=== PATIENT | male | born 1935 | race Caucasian/White ===

== ENCOUNTER 2021-10-19 14:52 | Emergency (ER) | payer MEDICARE, SELFPAY ==
--- NOTE | ~2021-10-19 | XR_ITS ---
EXAMINATION: XR CHEST CLINICAL INFORMATION: Shortness of breath, rule out pneumonia. COMPARISON: None TECHNIQUE: Frontal view of the chest was obtained. FINDINGS: Kyphotic positioning and low lung volumes limit evaluation. The patient's chin partially obscures the left apex. Minimal blunting of the left costophrenic angle seen with mild superjacent linear markings. The left upper lung field and right lung are clear. Multilevel healed right rib fractures are noted. The heart and mediastinal structures are unremarkable. XR/XR chest 1V IMPRESSION: Minimal blunting of the left costophrenic angle is nonspecific and could be projectional given the suboptimal positioning. A very small left pleural effusion and superjacent atelectasis cannot be excluded. PA and lateral views of the chest be helpful in this patient with possible.
[2021-10-19 15:26] VITALS: BP 122/50; PULSE 62; RESP 18; TEMP 36.9; O2SAT 98; O2SAT 99; BMI 31.0
--- NOTE | 2021-10-19 16:11 | ED_ITS ---
HPI - General Adult General Chief complaint: General Medical Stated complaint: weakness Time Seen by Provider: 10/19/21 15:58 Source: EMS Mode of arrival: EMS Limitations: other (Dementia) History of Present Illness HPI narrative: Patient comes emergency room via EMS. Patient was discharged from [facility] an hour ago. Patient was therefore UTI encephalopathy. Patient was discharged on antibiotics, nitrofurantoin. Patient was taken to [facility], the staff said that the patient was unresponsive and called EMS. When EMS arrived, patient was alert, arousable, patient denied any complaints. Related Data Home Medications Medication Instructions Recorded Confirmed amlodipine 10 mg tablet 1 tab PO DAILY 10/19/21 10/19/21 aspirin 81 mg tablet,delayed 81 mg PO DAILY 10/19/21 10/19/21 release atorvastatin 80 mg tablet 80 mg PO BEDTIME 10/19/21 10/19/21 duloxetine 30 mg capsule,delayed 1 cap PO BID 10/19/21 10/19/21 release empagliflozin 10 mg tablet 10 mg PO DAILY 10/19/21 10/19/21 (Jardiance) glipizide 10 mg tablet 10 mg PO BID 10/19/21 10/19/21 isosorbide mononitrate 30 mg 30 mg PO DAILY 10/19/21 10/19/21 tablet,extended release 24 hr isosorbide mononitrate 60 mg 60 mg PO DAILY 10/19/21 10/19/21 tablet,extended release 24 hr memantine 10 mg tablet 1 tab PO BID 10/19/21 10/19/21 metoprolol succinate 25 mg 12.5 mg PO DAILY@1800 10/19/21 10/19/21 tablet,extended release 24 hr mirtazapine 15 mg tablet 15 mg PO BEDTIME 10/19/21 10/19/21 nitrofurantoin macrocrystal 100 mg 1 cap PO BID 10/19/21 10/19/21 capsule risperidone 0.25 mg tablet 0.25 mg PO DAILY@1800 10/19/21 10/19/21 Allergies Allergy/AdvReac Type Severity Reaction Status Date / Time Unable to Assess Allergy Verified 10/19/21 16:16 Review of Systems Review of Systems: Constitutional : No fever ENT/Mouth : No Hearing loss, No Ear Pain, No Nasal Congestion, No Sinus Pain, No Hoarseness, No sore throat, No Rhinorrhea, No Swallowing Difficulty Eyes: No Eye Pain, No Swelling, No Redness, No Foreign Body, No Discharge, No Vision Changes Cardiovascular : No Chest Pain, No SOB, No Dyspnea on Exertion, No Orthopnea, No Edema, No Palpitations Respiratory : No Cough, No Sputum, No Wheezing, No Smoke Exposure, No Dyspnea Gastrointestinal : No Nausea, No Vomiting, No Diarrhea, No Constipation, No abdominal Pain, No Hematochezia, No Melena Genitourinary : no irregular bleeding, No Dysuria, No Urinary Frequency, No Hematuria, No Urinary Incontinence, No Urgency, No Flank Pain, No Urinary Flow Changes, No Hesitancy Musculoskeletal : No joint pain, No Myalgias, No Joint Swelling Skin : No Skin Lesions, No rash Neuro : No Weakness, No Numbness, No Paresthesias, No Loss of Consciousness, No Dizziness, No Headache Psych : No Anxiety/Panic, No Depression, No SI/HI/AH/VH, No Social Issues, Heme/Lymph: No Bruising, No Bleeding,No Lymphadenopathy Endocrine : No Polyuria, No Polydipsia, No Temperature Intolerance [facility] Past Medical History Medical History (Updated 10/19/21 @ 20:26 by Gayle Garcia MD) Coronary artery disease Dementia Diabetes Social History Social History Advance Directives: No Advance Directives Information Provided: No Physical Exam ED Vital Signs: Vital Signs - 24 hr 10/19/21 15:26 10/19/21 18:17 10/19/21 20:06 Temperature 98.4 F 96.4 F L Pulse Rate 62 57 61 Respiratory Rate 18 9 L 14 Blood Pressure 122/50 L 121/61 125/55 L Pulse Oximetry 99 97 98 BMI result Body Mass Index 31.0 Const Other: Appearance: Alert. Oriented X1. No acute distress. Easily arousable, states he feels well Eyes: Pupils equal, round and reactive to light. ENT: Pharynx normal. Neck: Normal inspection. Neck supple. No lymph nodes noted. No crepitus CVS: Normal heart rate and rhythm. Pulses normal. Normal S1 and S2 Respiratory: No respiratory distress. Breath sounds normal. No Wheezing. No rales Abdomen: Soft and nontender. No rigidity. No distention. Skin: Skin warm and dry. Normal skin color. Normal skin turgor. Extremities: No lower extremity edema. No Lacerations. No Rash Neuro: No slurred speech. CN 2 through 12 grossly intact Psych: calm, cooperative, normal affect Course Course Course Narrative: Patient was discharged from [facility] about an hour ago. Patient is already on antibiotics. The reason he was brought to the emergency room here at [facility] is because he was found unresponsive, EMS found the patient to be alert. Here in the emergency room patient is alert as well, conversing with the staff. At this time, there is no need for further tests. Case management consult has been placed. Physician observation started at 16:15 Given the patient's age, renal function, we will switch his antibiotic from Macrobid to cefuroxime. First dose given in the emergency room 10/19/2021 Discharge Plan Discharge Clinical Impression: AMS (altered mental status) Patient Disposition: Still a Patient Prescriptions: No Action atorvastatin 80 mg tablet 80 mg PO BEDTIME 0RF glipizide 10 mg tablet 10 mg PO BID 0RF isosorbide mononitrate 30 mg tablet extended release 24 hr 30 mg PO DAILY 0RF risperidone 0.25 mg tablet 0.25 mg PO DAILY@1800 0RF aspirin 81 mg Tablet,Delayed Release (Dr/Ec) 81 mg PO DAILY 0RF isosorbide mononitrate 60 mg tablet extended release 24 hr 60 mg PO DAILY 0RF Rx Instructions: take with isosorbide 30 mg amlodipine 10 mg tablet 1 tab PO DAILY 0RF nitrofurantoin macrocrystal 100 mg capsule 1 cap PO BID 0RF mirtazapine 15 mg tablet 15 mg PO BEDTIME 0RF metoprolol succinate 25 mg tablet extended release 24 hr 12.5 mg PO DAILY@1800 0RF memantine 10 mg tablet 1 tab PO BID 0RF duloxetine 30 mg capsule,delayed release(DR/EC) 1 cap PO BID 0RF Jardiance 10 mg tablet 10 mg PO DAILY 0RF
--- NOTE | 2021-10-19 16:12 | MHC.CM.ED ---
Patient came to ER from [facility]. Patient was d/c'd from [facility] to [facility] on 10/19. Facility felt patient was lethargic and sent him to the ER. Patient currently not lethargic. Anticipate patient will return to facility. Referral made via [employer]. Continue to monitor for d/c needs.
--- NOTE | 2021-10-19 17:21 | MHC.CM.ED ---
Addendum entered by Rosamaria Lewis 10/19/21 18:23: CLARIFICATION: Pt was at [facility] for 3 days FROM HOME prior to admission to [facility] for 1 day, and then return to [facility] ED overnight with placement at [facility] [place] for STR today. Pt arrived at [facility], was not arousable and EMS brought pt to [facility] ED. HCP[facility]POA [facility] Addendum entered by Rosamaria Lewis 10/19/21 17:56: Current med list uploaded into [facility] and on pt chart. Also uploaded MOLST into [facility] and [facility]. Dr. Garcia aware of med list/MOLST. Pharmacy aware. Per Meghana, , pt eats a regular diet. MD and Nba RN aware. RN will order dinner. remains at bedside. Very concerned about pt receiving Respiradol, as he was very agitated last night when his medication was late. Educated on process for medication, including pharmacy verification, prior to RN being able to give medication. [facility] [place] has not yet returned telephone call. Expect pt to remain overnight in ED. CM to follow up with [facility] in am for return to facility. CM to follow for d/c needs. Original Note: CM called [facility], pt has never been there. Received a call from pt /HCP/POA, Meghana Beatty ([phone]). According to , pt was resident of [facility] for 1 day. He was unable to ambulate, so he was sent to [facility] for evaluation. Pt was diagnosed with UTI and was at [facility] for 3 days. Pt returned to [facility] today with increased AMS and was discharged from [facility] today and sent to [facility] [place] for STR (10/19). According to [facility], pt arrived and was lethargic and unresponsive to sternal rub. Pt was examined by FORMING DEPARTMENT SUPERVISOR at [facility] [place] and determined that pt needed to return to hospital. EMS brought pt to [facility] ED. Per nurse at [facility] [place], she would need to speak with her pest control supervisor regarding patient return to facility tonight. Given direct contact information to CM. , Meghana, upset that pt did not return to [facility], as pt has all of his care there. Meghana concerned about pt medications. Will be in tonight to review medication list and visit with . Attempted to review medication list on telephone, but she would like to do it in person. HCP/POA available and uploaded into [facility] and [facility] Expanse. Dr. Garcia aware of above. CM to follow for d/c needs.
--- NOTE | 2021-10-19 18:00 | PHA.MEDREC ---
Pharmacy Consult ? Medication Reconciliation Pharmacy has completed the medication reconciliation.
[2021-10-19 18:17] VITALS: BP 121/61; PULSE 57; RESP 9; TEMP 35.8; O2SAT 97
--- NOTE | 2021-10-19 19:00 | PC.NURSE ---
Patient's is at bedside feeding the patient. Patient's oxygen saturation dropped to 80's but monitor was off his finger. Monitor placed on his finger.
--- NOTE | 2021-10-19 19:11 | MHC.CM.ED ---
Received word from [facility] that they cannot accept patient tonight, maybe tomorrow. CM will reach out to them in the morning. RN/MD aware. CM to follow for d/c needs.
[2021-10-19 20:06] VITALS: BP 125/55; PULSE 61; RESP 14; O2SAT 98
[2021-10-19] MEDS: DULoxetine HCl 30 MG CAPSULE.DR PO (20:35)
[2021-10-19] MEDS: glipiZIDE 10 MG TABLET PO (20:36)
[2021-10-19] MEDS: risperiDONE 0.25 MG TABLET PO ×2 (20:36→20:46)
[2021-10-19] MEDS: Memantine HCl 10 MG TABLET PO (20:36)
[2021-10-19] MEDS: Atorvastatin Calcium 80 MG TABLET PO (20:36)
[2021-10-19] MEDS: Mirtazapine 15 MG TABLET PO (20:36)
[2021-10-19 23:45] VITALS: BP 161/68; PULSE 63; RESP 12; O2SAT 99
[2021-10-19 23:49] VITALS: BP 125/60; PULSE 62
[2021-10-20] VITALS: RESP 15
[2021-10-20 04:06] VITALS: BP 132/64; PULSE 60; RESP 14; O2SAT 97
[2021-10-20 06:28] VITALS: BP 169/67; PULSE 67; RESP 17; TEMP 36.6; O2SAT 97
[2021-10-20 07:04] VITALS: BP 133/50; PULSE 52; RESP 16; TEMP 36; O2SAT 96
[2021-10-20 08:43] LABS: MANUAL DIFF FLAG NO
[2021-10-20 08:53] LABS: Basophils Percent Auto 0.5 % (0-2); Eosinophils Absolute Auto 0.4 X10*3/uL (0.0-0.4); Eosinophils Percent Auto 7.4 % (0-4); Hematocrit 39.3 % (42.0-52.0); Imm Gran Abs Auto 0.03 X10*3/uL (0.00-0.03); Imm Gran Pct Auto 0.5 % (0.0-0.4); Lymphocytes Absolute Auto 0.9 X10*3/uL (1.2-4.9); Lymphocytes Percent Auto 16.5 % (20-40); Mean Corpuscular HGB Conc 33.1 g/dl (31.0-36.0); Mean Corpuscular Hemoglobin 29.1 pg (27.0-33.0); Mean Corpuscular Volume 88.1 fL (80.0-98.0); Mean Platelet Volume 10.8 fL (9.4-12.4); Monocytes Absolute Auto 0.5 X10*3/uL (0.1-1.2); Monocytes Percent Auto 9.8 % (2-11); Neutrophils Absolute Auto 3.6 x10*3/uL (2.0-8.3); Neutrophils Percent Auto 65.3 % (45-73); Platelet Count 125 X10*3/uL (160-400); Red Blood Count 4.46 X10*6/uL (4.60-5.80); White Blood Count 5.5 X10*3/uL (4.8-10.8)
[2021-10-20 09:02] LABS: Alanine Aminotransferase 16 U/L (0-40); Albumin Level 3.6 g/dL (3.5-5.0); Alkaline Phosphatase 31 U/L (39-117); Anion Gap 13 (12-20); Aspartate Amino Transferase 24 U/L (5-37); Bilirubin Total 0.8 mg/dL (0.0-1.0); Blood Urea Nitrogen 14 mg/dL (9-16); Calcium 9.1 mg/dL (8.4-10.2); Carbon Dioxide 27 mmol/L (22-29); Chloride 103 mmol/L (96-108); Creatinine Clr Calc Pharmacy 68.8; Estimated Glomerular Filt Rate > 60; Glucose Random 91 mg/dL (60-115); Lipase 52 U/L (8-78); Potassium 3.8 mmol/L (3.3-5.1); Sodium 139 mmol/L (135-145); Total Protein 5.9 g/dL (6.5-8.0)
[2021-10-20 09:27] VITALS: BP 120/62; PULSE 60; RESP 12; TEMP 36.8; O2SAT 97
[2021-10-20] MEDS: Isosorbide Mononitrate 60 MG TAB.ER.24H PO (09:31)
[2021-10-20] MEDS: Aspirin Enteric Coated 81 MG TABLET.DR PO (09:31)
[2021-10-20] MEDS: Empagliflozin 10 MG TABLET PO (09:32)
[2021-10-20] MEDS: glipiZIDE 10 MG TABLET PO (09:32)
[2021-10-20] MEDS: Memantine HCl 10 MG TABLET PO (09:32)
[2021-10-20] MEDS: amLODIPine Besylate 10 MG TABLET PO (09:32)
[2021-10-20] MEDS: Isosorbide Mononitrate 30 MG TAB.ER.24H PO (09:32)
[2021-10-20] MEDS: DULoxetine HCl 30 MG CAPSULE.DR PO (09:33)
[2021-10-20 09:53] LABS: Appearance Urine HAZY; Color Urine YELLOW; Glucose Urine UA >=1000 MG/DL (NEG); Leukocyte Esterase Urine NEG (NEG); Nitrite Urine NEG (NEG); UACC Culture Trigger NO; Urine Blood TRACE (NEG); Urine Ketones NEG (NEG); Urine Protein NEG (NEG-TRACE)
--- NOTE | 2021-10-20 10:07 | MHC.CM.ED ---
Addendum entered by Cristina Crockett 10/20/21 10:08: Missy CARRION aware. Original Note: Per [facility], patient can return to their facility. [facility] booked for 11am. [facility] with chart. Left a voicemail for patient's /HCP, Meghana via telephone at [phone]. Dr Jaramillo aware. Continue to monitor for d/c needs.
[2021-10-20 10:08] LABS: UACC CULT YES
[2021-10-20 10:09] LABS: Squamous Epithelial Cell Urine 1+ /LPF
--- NOTE | 2021-10-20 11:21 | PC.NURSE ---
rn to rn report given rafa at [facility].
== END 2021-10-20 11:21 | disposition skilled nursing facility (03) ==
PROVIDERS: Emergency Provider Emergency Medicine Emergency Medical Services
DX: R41.82 Altered mental status, unspecified (principal); I25.10 Atherosclerotic heart disease of native coronary artery without angina pectoris; Z79.899 Other long term (current) drug therapy
CPT/HCPCS: 36415; 71045; 80053; 81001; 83690; 85025; 87086; 99284